=== PATIENT | male | born 1970 | race Caucasian/White ===

== ENCOUNTER 2016-12-01 23:45 | Emergency (ER) | payer BC | END 2016-12-02 03:14 | disposition home or self-care (01) | LOC: ER 23:45 | DX: S80.811A Abrasion, right lower leg, initial encounter (principal); S29.9XXA Unspecified injury of thorax, initial encounter; I10 Essential (primary) hypertension; E11.9 Type 2 diabetes mellitus without complications; Z88.0 Allergy status to penicillin; V89.2XXA Person injured in unspecified motor-vehicle accident, traffic, initial encounter | CPT/HCPCS: 71020; 99284; A9270-GY ==